=== PATIENT | female | born 1935 | race Caucasian/White ===

== ENCOUNTER 2017-08-10 09:25 | Day surgery (SDC) | payer MEDICARE, OTHER ==
[2017-08-10 10:06] LABS: Platelet Count 155 k/uL (150-450)
[2017-08-10 10:10] LABS: INR 1.5 (<1.2); Prothrombin Time 14.1 sec (9.0-12.0)
[2017-08-10 10:11] VITALS: RESP 16; TEMP 97.6
[2017-08-10 11:42] VITALS: BP 120/56; PULSE 80
--- NOTE | 2017-08-10 12:16 | XR ---
EXAMINATION TYPE: XR chest 1V DATE OF EXAM: 08/10/2017 COMPARISON: Chest x-ray December 16, 2014. HISTORY: Status post right thoracentesis TECHNIQUE: Single frontal view of the chest is obtained. FINDINGS: The osseous structures remain demineralized. Right axillary surgical clips are redemonstra curtis. There is persistent small to moderate-sized left pleural effusion and associated left basilar at electasis and/or infiltrate. There is tiny residual right-sided pleural effusion after thoracentesis. No sizable pneumothorax is seen. Cardiac silhouette size is stable and felt within normal limits wit h atherosclerotic change in aortic knob. IMPRESSION: No sizable pneumothorax after right-sided thoracentesis.
--- NOTE | 2017-08-11 09:00 | US ---
EXAMINATION TYPE: US thoracentesis DATE OF EXAM: 08/10/2017 COMPARISON: NONE HISTORY: Pleural effusion. FINDINGS: Maximal barrier technique was utilized. The skin overlying a suitable pocket of fluid was localized and the overlying skin prepped and draped. Lidocaine was used for local anesthesia. Ultras ound was used with sterile technique. A 5 Kyr[place] catheter over guide needle was advanced into the pl eural fluid collection using ultrasound guidance and the catheter advanced, needle removed. Approxim ately 1.1 liter(s) of serous fluid was removed. Catheter was withdrawn and hemostasis achieved. The re is no immediate complication. The patient discharged in stable condition without complication. IMPRESSION: STATUS POST ULTRASOUND GUIDED THORACENTESIS, POST PROCEDURE CHEST X-RAY PENDING. THIS PA OCEDURE WAS PERFORMED BY THE UNDERSIGNED. Specimen obtained for laboratory analysis.
== END 2017-08-10 12:11 | disposition home or self-care (01) ==
LOC: RADPROMAIN 09:25
PROVIDERS: ATTEND Internal Medicine Hematology & Oncology
DX: J90 Pleural effusion, not elsewhere classified (principal); C50.411 Malignant neoplasm of upper-outer quadrant of right female breast
CPT/HCPCS: 32555; 71045; 85049; 85610; 88108; 88305; 88341; 88342

== ENCOUNTER 2017-08-11 13:13 | Day surgery (SDC) | payer MEDICARE, OTHER ==
--- NOTE | 2017-08-11 14:19 | XR ---
EXAMINATION TYPE: XR chest 1V DATE OF EXAM: 08/11/2017 COMPARISON: 08/10/2017 HISTORY: Status post left-sided thoracentesis. TECHNIQUE: Single frontal view of the chest is obtained. FINDINGS: There is marked interval improvement in the left-sided pleural effusion. Small bilateral p leural effusions remain with associated bibasilar airspace disease, likely atelectasis. Right axillar y surgical clips are noted. Cardiomediastinal silhouette is within normal limits. Osseous structures display mild degenerative change. Small hiatal hernia is suspected. Diffuse osseous demineralization is seen. IMPRESSION: No postprocedural pneumothorax with significantly improved left pleural effusion, now sm all in persistent small right pleural effusion.
[2017-08-11 15:24] VITALS: RESP 18; TEMP 97.1
[2017-08-11 15:25] VITALS: BP 124/63; PULSE 66
--- NOTE | 2017-08-11 15:42 | US ---
EXAMINATION TYPE: US thoracentesis DATE OF EXAM: 08/11/2017 COMPARISON: NONE HISTORY: Pleural effusion. FINDINGS: Maximal barrier technique was utilized. The skin overlying a suitable pocket of fluid was localized and the overlying skin prepped and draped. Lidocaine was used for local anesthesia. Ultras ound was used with sterile technique. A 5 [place] catheter over guide needle was advanced into the pl eural fluid collection using ultrasound guidance and the catheter advanced, needle removed. Approxim ately 1.2 liter(s) of serous fluid was removed. Catheter was withdrawn and hemostasis achieved. The re is no immediate complication. The patient discharged in stable condition without complication. IMPRESSION: STATUS POST ULTRASOUND GUIDED THORACENTESIS, POST PROCEDURE CHEST X-RAY PENDING. THIS IN OCEDURE WAS PERFORMED BY THE UNDERSIGNED. Specimen obtained for laboratory analysis.
== END 2017-08-11 14:20 | disposition home or self-care (01) ==
LOC: RADPROMAIN 13:13
PROVIDERS: ATTEND Internal Medicine Hematology & Oncology
DX: J91.8 Pleural effusion in other conditions classified elsewhere (principal); C50.919 Malignant neoplasm of unspecified site of unspecified female breast
CPT/HCPCS: 32555; 36415; 71045; 88108; 88305; 88341; 88342

== ENCOUNTER 2017-08-16 09:40 | Inpatient (IN) | payer MEDICARE, OTHER ==
[2017-08-16] MEDS ORDERED: ONDANSETRON 4 MG/2 ML VIAL IVP STA (10:25)
[2017-08-16] MEDS ORDERED: FAMOTIDINE 20 MG/2 ML VIAL IV STA (10:39)
--- NOTE | 2017-08-16 10:42 | ED ---
General Adult HPI - General Chief complaint: Weakness Stated complaint: LEW/NAUSEA FOLLOWING THORESENTESIS Time Seen by Provider: 08/16/17 10:20 Source: patient, family, RN notes reviewed Mode of arrival: wheelchair Limitations: no limitations - History of Present Illness Initial comments: Patient is a pleasant 82-year-old female presenting to the emergency department with generalized weakness. Symptoms started somewhat yesterday however much worse today. Patient has been vomiting, multiple times. Patient has dyspnea that started today. Patient did have thoracentesis done last week and has been breathing well since that time. Dyspnea is not as bad as it was prior to thoracentesis. Patient does have history of metastatic breast cancer. - Related Data Home Medications Medication Instructions Recorded Confirmed Multivitamins, Thera [Multivitamin 1 tab PO DAILY 07/29/14 08/16/17 (formulary)] Simvastatin [Zocor] 20 mg PO DAILY 07/29/14 08/16/17 Cholecalciferol (Vitamin D3) 2,000 unit PO DAILY 08/08/17 08/16/17 [Vitamin D3] Enalapril Maleate [Vasotec] 5 mg PO DAILY 08/08/17 08/16/17 Ferrous Sulfate [Iron] 325 mg PO DAILY 08/08/17 08/16/17 Furosemide [Lasix] 20 mg PO DAILY 08/08/17 08/16/17 rOPINIRole HCL [Requip] 2 mg PO BID 08/16/17 08/16/17 Allergies Allergy/AdvReac Type Severity Reaction Status Date / Time No Known Allergies Allergy Verified 08/16/17 11:33 Review of Systems ROS Statement: Those systems with pertinent positive or pertinent negative responses have been documented in the HPI. ROS Other: All systems not noted in ROS Statement are negative. Constitutional: Denies: fever Eyes: Denies: eye pain ENT: Denies: ear pain Respiratory: Reports: dyspnea Cardiovascular: Reports: edema. Denies: chest pain Endocrine: Reports: fatigue Gastrointestinal: Reports: nausea, vomiting. Denies: abdominal pain Genitourinary: Denies: dysuria Skin: Denies: rash Neurological: Denies: headache Past Medical History Past Medical History: Asthma, Cancer, GERD/Reflux, Hyperlipidemia, Hypertension , Osteoarthritis (OA) Additional Past Medical History / Comment(s): Hypertension and hypertensive cardio vascular disease, hyperlipidemia, GERD, osteoarthritis, low back pain, breast cancer status post right lumpectomy followed by right mastectomy with chemoandradiation therapy. Pleural Effusions, Breast Ca with bone mets and liver mets. Patient taking oral chemo pill. History of Any Multi-Drug Resistant Organisms: None Reported Past Surgical History: Back Surgery, Bowel Resection, Cholecystectomy, Orthopedic Surgery Additional Past Surgical History / Comment(s): Right lumpectomy, right mastectomy, posterior lumbar discectomy with fusion more than 20 years ago, left total knee arthroplasty, cholecystectomy, explatory laparotomy with lysis of adhesion forsmallbowel obstruction, colonoscopy in 2010 was normal. Bilateral thoracentesis Past Anesthesia/Blood Transfusion Reactions: No Reported Reaction Past Psychological History: No Psychological Hx Reported Smoking Status: Never smoker - Past Family History Mother Additional Family Medical History / Comment(s): Mother at age of 82 cause of colon perforation watch was treated for temporal arteritis that led to the perforation of the colon and septic shock. Father Family Medical History: COPD, CVA/TIA Additional Family Medical History / Comment(s): emphysemia Brother(s) Family Medical History: Neurologic Disorder Daughter(s) Family Medical History: No Reported History Son(s) Family Medical History: No Reported History General Exam Limitations: no limitations General appearance: alert, in no apparent distress Head exam: Present: atraumatic Eye exam: Present: normal appearance, PERRL ENT exam: Present: normal oropharynx Neck exam: Present: normal inspection Respiratory exam: Present: decreased breath sounds (Bilateral bases) Cardiovascular Exam: Present: regular rate, normal rhythm GI/Abdominal exam: Present: soft. Absent: tenderness Extremities exam: Present: pedal edema. Absent: calf tenderness Back exam: Present: normal inspection Neurological exam: Present: alert, oriented X3. Absent: motor sensory deficit Expanded Neurological exam: Present: protecting the airway Motor strength exam: RUE: 5, LUE: 5, RLE: 5, LLE: 5 Eye Response: (4) open spontaneously Motor Response: (6) obeys commands Verbal Response: (5) oriented Psychiatric exam: Present: normal affect, normal mood Skin exam: Present: normal color Course Vital Signs 08/16/17 08/16/17 08/16/17 09:55 11:09 11:48 Temperature 96.9 F L Pulse Rate 85 79 81 Respiratory 15 18 16 Rate Blood Pressure 75/45 98/53 100/47 O2 Sat by Pulse 90 L 96 99 Oximetry EKG Findings - EKG Comments: EKG Findings:: Sinus rhythm at 81. PVC present. IA 146. QRS 68. QT 392. QTC 455. Normal axis. Low QRS voltage. No acute ST change. Medical Decision Making - Medical Decision Making Patient reevaluated. Patient and family updated. Case was discussed in detail with Dr. Godfrey who is familiar with this patient. He is aware of to liver metastasis. He does want to admit his patient with IV fluid hydration. - Lab Data Result diagrams: 08/16/17 11:13 08/16/17 11:13 Lab Results 08/16/17 08/16/17 08/16/17 Range/Units 11:13 11:13 11:13 WBC 9.0 (3.8-10.6) k/uL RBC 3.75 L (3.80-5.40) m/uL Hgb 13.4 (11.4-16.0) gm/dL Hct 39.4 (34.0-46.0) % MCV 105.0 H (80.0-100.0) fL MCH 35.8 H (25.0-35.0) pg MCHC 34.0 (31.0-37.0) g/dL RDW 16.7 H (11.5-15.5) % Plt Count 144 L (150-450) k/uL Neutrophils % 85 % Lymphocytes % 7 % Monocytes % 7 % Eosinophils % 0 % Basophils % 0 % Neutrophils # 7.7 (1.3-7.7) k/uL Lymphocytes # 0.6 L (1.0-4.8) k/uL Monocytes # 0.6 (0-1.0) k/uL Eosinophils # 0.0 (0-0.7) k/uL Basophils # 0.0 (0-0.2) k/uL Anisocytosis Slight Macrocytosis Moderate PT 17.8 H (9.0-12.0) sec INR 2.0 H (<1.2) APTT 31.3 H (22.0-30.0) sec Sodium 122 L (137-145) mmol/L Potassium 3.7 (3.5-5.1) mmol/L Chloride 86 L (98-107) mmol/L Carbon Dioxide 22 (22-30) mmol/L Anion Gap 14 mmol/L BUN 46 H (7-17) mg/dL Creatinine 1.70 H (0.52-1.04) mg/dL Est GFR (CKD-EPI)AfAm 32 (>60 ml/min/1.73 sqM) Est GFR (CKD-EPI)NonAf 28 (>60 ml/min/1.73 sqM) Glucose 73 L (74-99) mg/dL Calcium 7.8 L (8.4-10.2) mg/dL Magnesium 1.8 (1.6-2.3) mg/dL Total Bilirubin 8.2 H (0.2-1.3) mg/dL AST 334 H (14-36) U/L ALT 112 H (9-52) U/L Alkaline Phosphatase 182 H (38-126) U/L Total Protein 5.5 L (6.3-8.2) g/dL Albumin 2.3 L (3.5-5.0) g/dL - Radiology Data Radiology results: image reviewed (Chest x-ray does show moderate left and small right effusion.) Disposition Clinical Impression: Bilateral pleural effusion, Hyponatremia, Dehydration Disposition: ADMITTED IP TO THIS HOSP Is patient prescribed a controlled substance at d/c from ED?: No Referrals: Rachael Garcia DO [Primary Care Provider] - 1-2 days Decision Time: 12:52
[2017-08-16 11:44] LABS: Albumin 2.3 g/dL (3.5-5.0); Anisocytosis Slight; Basophils % (A) 0 %; Calcium 7.8 mg/dL (8.4-10.2); Eosinophils % (A) 0 %; HCT 39.4 % (34.0-46.0); HGB 13.4 gm/dL (11.4-16.0); Lymphocytes # (A) 0.6 k/uL (1.0-4.8); Lymphocytes % (A) 7 %; MCH 35.8 pg (25.0-35.0); Macrocytosis Moderate; Magnesium 1.8 mg/dL (1.6-2.3); Mean Platelet Volume 7.8; Monocytes # (A) 0.6 k/uL (0-1.0); Monocytes % (A) 7 %; Neutrophils # (A) 7.7 k/uL (1.3-7.7); Neutrophils % (A) 85 %; Platelet Count 144 k/uL (150-450); Potassium 3.7 mmol/L (3.5-5.1); RBC 3.75 m/uL (3.80-5.40); RDW 16.7 % (11.5-15.5); Total Bilirubin 8.2 mg/dL (0.2-1.3); Total Protein 5.5 g/dL (6.3-8.2)
[2017-08-16 11:51] LABS: Partial Thromboplastin Time 31.3 sec (22.0-30.0); Prothrombin Time 17.8 sec (9.0-12.0)
--- NOTE | 2017-08-16 12:19 | XR ---
EXAMINATION TYPE: XR chest 2V DATE OF EXAM: 08/16/2017 COMPARISON: 08/11/2017 HISTORY: 82-year-old female with weakness and shortness of breath TECHNIQUE: Frontal and lateral views FINDINGS: Heart normal size. Scattered large calcifications. Mild diffuse interstitial prominence similar prior . Moderate left and small right pleural effusions show slight interval increase from 08/11/2017. No ap preciable pneumothorax. IMPRESSION: Moderate left and small right pleural effusions with adjacent atelectasis and/or consolidation, sligh tly increased from 08/11/2017.
[2017-08-16] MEDS ORDERED: NALOXONE 0.4 MG/ML 1 ML VIAL IV PRN (12:52)
[2017-08-16] MEDS ORDERED: ONDANSETRON 4 MG/2 ML VIAL IVP PRN (12:52)
[2017-08-16] MEDS: SODIUM CHLORIDE 0.9% 1,000 ML IV SCH (14:25)
[2017-08-17] MEDS: SODIUM CHLORIDE 0.9% 1,000 ML IV SCH ×2 (05:32→16:47)
[2017-08-17] MEDS ORDERED: SODIUM CHLORIDE 0.9% 1,000 ML IV ONE ×3 (05:59→17:35)
[2017-08-17] MEDS ORDERED: PANTOPRAZOLE 40 MG/10 ML VIAL IV SCH (09:00)
[2017-08-17 10:35] LABS: Appearance,Urine Turbid (Clear); Bacteria,Urine Moderate /hpf; Bilirubin,Urine 2+ (Negative); Blood,Urine Trace (Negative); Color,Urine Dark Brown; Glucose,Urine (UA) Negative (Negative); Hyaline Casts,Urine 100 /lpf (0-2); Ketones,Urine Negative (Negative); Leukocyte Esterase,Urine Large (Negative); Mucus,Urine Occasional /hpf; Nitrite,Urine Negative (Negative); PH, Urine 5.5 (5.0-8.0); Protein,Urine 1+ (Negative); RBC,Urine 2 /hpf (0-5); Specific Gravity,Urine 1.014 (1.001-1.035); WBC,Urine >182 /hpf (0-5)
[2017-08-17] MEDS: HYDROCORTISONE SUCCINATE 100 MG/2 ML VIAL IV SCH ×3 (11:45→23:52)
--- NOTE | 2017-08-17 12:13 | P.HPIM ---
History of Present Illness H&P Date: 08/17/17 Chief Complaint: Severe hyponatremia, liver metastasis, severe hypotension, breast cancer wi 82-year-old female one of Dr. Garcia's patient with past medical history of breast cancer was diagnosed back in 2013, underwent 2 through surgery and chemotherapy. Patient had liver metastases were diagnosed recently with Dr. Godfrey. She was in the office yesterday for follow-up and found to be in severe fatigue tiredness not doing well and had mild altered mental status. With the current complaint was sent to the emergency department at [facility] where was seen and evaluated, surprisingly found to have severe hyponatremia with sodium of 122, acute kidney injury with most likely ATN with creatinine 1.7 BUN 46. Also had severe coagulopathy with INR of 2.0, PT of 17.8. Also her liver function tests are extremely abnormal. Patient was hospitalized under oncology and transferred to our service this morning for her current medical management. Patient continued to have severe hypotension with a blood pressure running in the 70s to 80/50. Review her CAT scan with the metastasis to the liver patient most likely had more metastasis elsewhere including lymph node around the vena cava along with adrenal gland causing mild to moderate adrenal insufficiency along with more blockage of the vena cava causing worsening edema in the lower extremity. Review of Systems CONSTITUTIONAL: Well-developed no acute respiratory distress. EYES: Positive icterus sclerae, no conjunctivitis. EARS, NOSE, MOUTH, THROAT, and FACE: No sore throat, lymphadenopathy, carotid bruits or deformity. RESPIRATORY: No SOB cough or wheezes. CARDIOVASCULAR: No CP, positive Palpitation, PND, Orthopnea, or angina. GASTROINTESTINAL: Slight Abd pain with distention, Nausea or vomiting, no Diarrhea or constipation, No GI Bleed, no distention or masses, slight hepatomegaly with jaundice.. GENITOURINARY: Negative for Hematuria or UTI, no kidney stones. INTEGUMENT/BREAST: Negative for any muscular injury with mild osteoarthritis.. HEMATOLOGIC/LYMPHATIC: Negative for bleed or purpura. MUSCULOSKELTAL: Positive for Myalgia or arthralgia. NEURLOGICAL: No LOC, Sz or syncope, blurred vision dizziness or abnormality. Positive abnormal gait. BEHAVIORAL/PSYCH: Negative. ENDOCRINE: Negative. Past Medical History Past Medical History: Asthma, Cancer, GERD/Reflux, Hyperlipidemia, Hypertension , Osteoarthritis (OA) Additional Past Medical History / Comment(s): Hypertension and hypertensive cardio vascular disease, low back pain, breast cancer status post right lumpectomy followed by right mastectomy with chemo and radiation therapy-per pt/ danielle they were told 2 weeks ago has mets to bone and liver. Pleural Effusions, Patient taking oral chemo pill. History of Any Multi-Drug Resistant Organisms: None Reported Past Surgical History: Back Surgery, Bowel Resection, Cholecystectomy, Orthopedic Surgery Additional Past Surgical History / Comment(s): Right lumpectomy, right mastectomy, posterior lumbar discectomy with fusion more than 20 years ago, left total knee arthroplasty, cholecystectomy, explatory laparotomy with lysis of adhesion formallbowel obstruction, colonoscopy in 2010 was normal. several Bilateral thoracentesis latest ones 08-10-17 and 08-11-17, cataracts Past Anesthesia/Blood Transfusion Reactions: No Reported Reaction Smoking Status: Never smoker - Past Family History Mother Additional Family Medical History / Comment(s): Mother at age of 82 cause of colon perforation watch was treated for temporal arteritis that led to the perforation of the colon and septic shock. Father Family Medical History: COPD, CVA/TIA Additional Family Medical History / Comment(s): emphysemia Brother(s) Family Medical History: Neurologic Disorder Daughter(s) Family Medical History: No Reported History Son(s) Family Medical History: No Reported History Medications and Allergies Home Medications Medication Instructions Recorded Confirmed Type Multivitamins, Thera [Multivitamin 1 tab PO DAILY 07/29/14 08/16/17 History (formulary)] Simvastatin [Zocor] 20 mg PO DAILY 07/29/14 08/16/17 History Cholecalciferol (Vitamin D3) 2,000 unit PO DAILY 08/08/17 08/16/17 History [Vitamin D3] Enalapril Maleate [Vasotec] 5 mg PO DAILY 08/08/17 08/16/17 History Ferrous Sulfate [Iron] 325 mg PO DAILY 08/08/17 08/16/17 History Furosemide [Lasix] 20 mg PO DAILY 08/08/17 08/16/17 History rOPINIRole HCL [Requip] 2 mg PO BID 08/16/17 08/16/17 History Allergies Allergy/AdvReac Type Severity Reaction Status Date / Time No Known Allergies Allergy Verified 08/16/17 11:33 Physical Exam Vitals: Vital Signs Temp Pulse Pulse Resp BP BP Pulse Ox 08/17/17 11:37 75 99/46 08/17/17 08:30 75/35 08/17/17 07:39 97 08/17/17 06:04 97.6 F 76 16 78/36 99 08/17/17 00:00 87 18 08/16/17 21:41 97.4 F L 87 18 91/42 94 L 08/16/17 18:35 97.4 F L 90 18 114/49 93 L 08/16/17 17:00 84 18 90/42 100 08/16/17 15:57 86 18 88/37 98 08/16/17 14:27 96.3 F L 81 18 100 08/16/17 14:00 82 16 106/48 99 Intake and Output 08/16/17 08/17/17 08/17/17 22:59 06:59 14:59 Intake Total 30 650 1000 Output Total 100 Balance 30 650 900 Intake: IV 1000 Sodium Chloride 0.9% 1, 1000 000 ml @ 999 mls/hr IV . Q1H1M ONE Rx#:[id number] Intake, IV Titration 650 Amount Sodium Chloride 0.9% 1, 650 000 ml @ 999 mls/hr IV . Q1H1M ONE Rx#:[id number] Oral 30 Output: Urine 100 Straight 100 Other: Voiding Method Bedpan # Voids 1 General Appearance: Alert, cooperative, no distress, appears stated age. Positive jaundice with eye icterus sclera. Neck HEENT: Supple, no lymphadenopathy, no thyroid enlargement, no carotid bruits. Lungs: Clear to auscultation without crackles or wheezes no rhonchi, no deformity. Chest Wall: Chest wall normal expansion with deep inspiration no tenderness and no deformity was found on exam, no costochondral pain or discomfort. Heart: Regular rate and rhythm, S1, S2 normal, no murmur, rub or gallop. Back: Symmetric, no curvature, ROM normal, no CVA tenderness. Abdomen: Soft, non-tender, bowel sounds active all four quadrants, palpable hepatomegaly with mildly enlarged spleen as well, small ascites. Extremities: Extremities normal, atraumatic, no cyanosis, 2+ edema Pulses: 2+ and symmetric. Skin: Skin color, texture, tugor normal, no rashes or lesions. Neurologic: Alert oriented x3 cranial nerves II through XII intact, no motor deficit, positive abnormal balance or gait. Results CBC & Chem 7: 08/16/17 11:13 08/16/17 11:13 Labs: Abnormal Lab Results - Last 24 Hours (Table) 08/16/17 08/16/17 08/17/17 Range/Units 11:13 11:13 10:10 RBC 3.75 L (3.80-5.40) m/uL MCV 105.0 H (80.0-100.0) fL MCH 35.8 H (25.0-35.0) pg RDW 16.7 H (11.5-15.5) % Plt Count 144 L (150-450) k/uL Lymphocytes # 0.6 L (1.0-4.8) k/uL PT 17.8 H (9.0-12.0) sec INR 2.0 H (<1.2) APTT 31.3 H (22.0-30.0) sec Osmolality (280-301) mosm/kg Urine Appearance Turbid H (Clear) Urine Protein 1+ H (Negative) Urine Blood Trace H (Negative) Urine Bilirubin 2+ H (Negative) Ur Leukocyte Esterase Large H (Negative) Urine WBC >182 H (0-5) /hpf Urine WBC Clumps Many H (None) /hpf Urine Bacteria Moderate H (None) /hpf Hyaline Casts 100 H (0-2) /lpf Urine Mucus Occasional H (None) /hpf 08/17/17 Range/Units 10:45 RBC (3.80-5.40) m/uL MCV (80.0-100.0) fL MCH (25.0-35.0) pg RDW (11.5-15.5) % Plt Count (150-450) k/uL Lymphocytes # (1.0-4.8) k/uL PT (9.0-12.0) sec INR (<1.2) APTT (22.0-30.0) sec Osmolality 265 L (280-301) mosm/kg Urine Appearance (Clear) Urine Protein (Negative) Urine Blood (Negative) Urine Bilirubin (Negative) Ur Leukocyte Esterase (Negative) Urine WBC (0-5) /hpf Urine WBC Clumps (None) /hpf Urine Bacteria (None) /hpf Hyaline Casts (0-2) /lpf Urine Mucus (None) /hpf Thrombosis Risk Factor Assmnt - DVT/VTE Prophylaxis DVT/VTE Prophylaxis: Mechanical Prophylaxis ordered - Choose All That Apply Each Risk Factor Represents 3 Points: Age 75 years or older Other congenital or acquired thrombophilia - If yes, enter type in comment: No Thrombosis Risk Factor Assessment Total Risk Factor Score: 3 Thrombosis Risk Factor Assessment Level: Moderate Risk Assessment and Plan Plan: 1 severe hyponatremia: Patient was hospitalized continue gentle hydration, patient might require mildly concentrated salt, also might benefit from sodium bicarbonate. Repeat osmolality along with CMP daily and if lower sodium patient might benefit from demeclocycline and nephrology consultation if needed. Ex 2 severe hypotension: Most likely combination of dehydration along with metastasis probably causing adrenal insufficiency, we'll continue gentle hydration and if needed start patient on hydrocortisone and fludrocortisone for adrenal insufficiency. 3 liver metastasis: More advance causing jaundice and more sign and symptom of liver failure which will increase the mortalities significantly with the current problem. Continue to watch liver function tests and coagulation on daily basis further testing including ultrasound of the liver and biliary tree be done. 4 severe coagulopathy: Caused by the liver metastasis continue to watch BUN/ creatinine and if needed vitamin K can be beneficial. 5 adrenal insufficiency: With possibility of adrenal metastasis as well, with current problem hydrocortisone 100 every 6 hours we'll be giving for the next 8 hours as a trial if improvement in the blood pressure and general condition that would make the diagnosis. 6 advanced stage IV breast cancer with metastasis: Was on chemotherapy still seen oncology regularly. 7 iron deficiency anemia: Patient to continue iron supplement. 8 anasarca: Most likely secondary to liver metastasis along with ascites and possibly pressure around the vena cava causing the symptoms. We will start diuretics as soon as the blood pressure improved. 9 restless leg syndrome: Has been on Requip 2 mg daily at bedtime continue medication. 10 hyperlipidemia: Patient has been on simvastatin which will be held for now. 11 hypertension: Blood pressure is low hold Vasotec for now. 12 GI prophylaxis: Patient is on pantoprazole IV. 13 DVT prophylaxis: Patient has coagulopathy as of now there is no reason for any anticoagulation will continue knee-high ESPERANZA hose. CODE STATUS: Full code. Admit patient to inpatient status for more than 2 nights.
[2017-08-17 13:31] VITALS: BMI 27.4
--- NOTE | 2017-08-17 15:19 | P.CNPUL ---
History of Present Illness Consult date: 08/17/17 Reason for consult: dyspnea (Hypotension), other Chief complaint: Hypotension History of present illness: This is an 81-year-old female who presented emergency department with altered mental status and fatigue. The patient was also having diarrhea and vomiting yesterday. She has had decreased appetite. She was found to be hyponatremic. She does have a history of breast cancer with metastases. The patient has liver metastases. She states she has been feeling very tired and fatigued lately. She is also complaining of shortness of breath. She is currently on 2 L nasal cannula with an O2 saturation of 97%. She denies fevers but does have chills and is always cold. She has swollen legs as well. She has been hypotensive and did require 2 L of IV fluid bolus. Her most recent blood pressure was 99/56. She is currently receiving IV fluids at 75 mL per hour. She does state that she has had decreased urine output. The patient did have a chest x-ray which showed moderate left pleural effusion and small right pleural effusion. She does have diffuse anasarca. The patient was straight cathed and had 100 mL of urine output. Review of Systems All systems: negative Past Medical History Past Medical History: Asthma, Cancer, GERD/Reflux, Hyperlipidemia, Hypertension , Osteoarthritis (OA) Additional Past Medical History / Comment(s): Hypertension and hypertensive cardio vascular disease, low back pain, breast cancer status post right lumpectomy followed by right mastectomy with chemo and radiation therapy-per pt/ danielle they were told 2 weeks ago has mets to bone and liver. Pleural Effusions, Patient taking oral chemo pill. History of Any Multi-Drug Resistant Organisms: None Reported Past Surgical History: Back Surgery, Bowel Resection, Cholecystectomy, Orthopedic Surgery Additional Past Surgical History / Comment(s): Right lumpectomy, right mastectomy, posterior lumbar discectomy with fusion more than 20 years ago, left total knee arthroplasty, cholecystectomy, explatory laparotomy with lysis of adhesion formallbowel obstruction, colonoscopy in 2010 was normal. several Bilateral thoracentesis latest ones 08-10-17 and 08-11-17, cataracts Past Anesthesia/Blood Transfusion Reactions: No Reported Reaction Smoking Status: Never smoker - Past Family History Mother Additional Family Medical History / Comment(s): Mother at age of 82 cause of colon perforation watch was treated for temporal arteritis that led to the perforation of the colon and septic shock. Father Family Medical History: COPD, CVA/TIA Additional Family Medical History / Comment(s): emphysemia Brother(s) Family Medical History: Neurologic Disorder Daughter(s) Family Medical History: No Reported History Son(s) Family Medical History: No Reported History Medications and Allergies Home Medications Medication Instructions Recorded Confirmed Type Multivitamins, Thera [Multivitamin 1 tab PO DAILY 07/29/14 08/16/17 History (formulary)] Simvastatin [Zocor] 20 mg PO DAILY 07/29/14 08/16/17 History Cholecalciferol (Vitamin D3) 2,000 unit PO DAILY 08/08/17 08/16/17 History [Vitamin D3] Enalapril Maleate [Vasotec] 5 mg PO DAILY 08/08/17 08/16/17 History Ferrous Sulfate [Iron] 325 mg PO DAILY 08/08/17 08/16/17 History Furosemide [Lasix] 20 mg PO DAILY 08/08/17 08/16/17 History rOPINIRole HCL [Requip] 2 mg PO BID 08/16/17 08/16/17 History Allergies Allergy/AdvReac Type Severity Reaction Status Date / Time No Known Allergies Allergy Verified 08/16/17 11:33 Physical Exam Osteopathic Statement: *. No significant issues noted on an osteopathic structural exam other than those noted in the History and Physical/Consult. Vitals: Vital Signs Temp Pulse Pulse Pulse Resp BP BP 08/17/17 14:28 97.4 F L 75 18 98/46 08/17/17 11:37 75 99/46 08/17/17 08:30 75/35 08/17/17 07:39 08/17/17 06:04 97.6 F 76 16 78/36 08/17/17 00:00 87 18 08/16/17 21:41 97.4 F L 87 18 91/42 08/16/17 18:35 97.4 F L 90 18 114/49 08/16/17 17:00 84 18 90/42 08/16/17 15:57 86 18 88/37 Pulse Ox 08/17/17 14:28 97 08/17/17 11:37 08/17/17 08:30 08/17/17 07:39 97 08/17/17 06:04 99 08/17/17 00:00 08/16/17 21:41 94 L 08/16/17 18:35 93 L 08/16/17 17:00 100 08/16/17 15:57 98 Intake and Output 08/17/17 08/17/17 08/17/17 06:59 14:59 22:59 Intake Total 650 2000 Output Total 200 Balance 650 1800 Intake: IV 2000 Sodium Chloride 0.9% 1, 2000 000 ml @ 999 mls/hr IV . Q1H1M ONE Rx#:[id number] Intake, IV Titration 650 Amount Sodium Chloride 0.9% 1, 650 000 ml @ 999 mls/hr IV . Q1H1M ONE Rx#:[id number] Output: Urine 200 Straight 100 Other: Voiding Method Bedpan Weight 74.843 kg Gen.: Patient is alert and oriented 3, no acute distress, obese Cardiovascular: Regular rate and rhythm, S1/S2 Lungs: Diminished breath sounds bilaterally at the bases Abdomen: Soft nontender nondistended positive bowel sounds Extremities: 3+ pitting edema Results - Laboratory Findings CBC and BMP: 08/16/17 11:13 08/16/17 11:13 PT/INR, D-dimer PT 17.8 sec (9.0-12.0) H 08/16/17 11:13 INR 2.0 (<1.2) H 08/16/17 11:13 Abnormal lab findings: Abnormal Labs 08/16/17 08/16/17 08/16/17 11:13 11:13 11:13 RBC 3.75 L MCV 105.0 H MCH 35.8 H RDW 16.7 H Plt Count 144 L Lymphocytes # 0.6 L PT 17.8 H INR 2.0 H APTT 31.3 H Sodium 122 L Chloride 86 L BUN 46 H Creatinine 1.70 H Glucose 73 L Osmolality Calcium 7.8 L Total Bilirubin 8.2 H AST 334 H ALT 112 H Alkaline Phosphatase 182 H Total Protein 5.5 L Albumin 2.3 L Urine Appearance Urine Protein Urine Blood Urine Bilirubin Ur Leukocyte Esterase Urine WBC Urine WBC Clumps Urine Bacteria Hyaline Casts Urine Mucus 08/17/17 08/17/17 10:10 10:45 RBC MCV MCH RDW Plt Count Lymphocytes # PT INR APTT Sodium Chloride BUN Creatinine Glucose Osmolality 265 L Calcium Total Bilirubin AST ALT Alkaline Phosphatase Total Protein Albumin Urine Appearance Turbid H Urine Protein 1+ H Urine Blood Trace H Urine Bilirubin 2+ H Ur Leukocyte Esterase Large H Urine WBC >182 H Urine WBC Clumps Many H Urine Bacteria Moderate H Hyaline Casts 100 H Urine Mucus Occasional H - Diagnostic Findings Chest x-ray: report reviewed, image reviewed Assessment and Plan Assessment: Acute hypoxic respiratory failure Hypotension, likely multifactorial Relative adrenal insufficiency Intravascular volume depletion UTI present on admission Moderate protein calorie malnutrition Moderate left and small right pleural effusions Anasarca Stage IV breast cancer with liver metastases Encephalopathy now resolved Hyponatremia Acute kidney injury, ATN secondary to hypotension Iron deficiency anemia Acute kidney injury Generalized fatigue and failure to thrive Coagulopathy secondary to liver metastases O2 to maintain saturation greater than or equal to 88% Will check ultrasound of the chest to roosevelt for thoracentesis Albumin x 2 doses Continue IV fluids at 75 mL per hour Avoid antihypertensives and nephrotoxins Antibiotics: Rocephin Await final urine culture Recheck labs now Check lactic acid GI and DVT prophylaxis Oncology recommendations Place Garcia catheter and monitor urine output Incentive spirometry and pulmonary hygiene Thank you for this consultation we'll continue to follow along
--- NOTE | 2017-08-17 15:53 | US ---
EXAMINATION TYPE: US chest DATE OF EXAM: 08/17/2017 COMPARISON: NONE CLINICAL HISTORY: bilateral, roosevelt for thoracentesis. EXAM MEASUREMENTS: Right Pleural Effusion fluid pocket: 9.1 cm Right skin to fluid thickness: 4.1 cm Left Pleural Effusion fluid pocket: 10.5 cm Left skin to fluid thickness: 3.9 cm Right side marked for possible thoracentesis outside the dept. Left side marked for possible thoracentesis outside the dept. Pulmonologists are able to review the images in the patient?s EMR. IMPRESSIONS: Bilateral pleural effusions, left greater than right.
[2017-08-17] MEDS: ALBUMIN HUMAN 25% 50 ML in EMPTY BAG 1 BAG IVPB SCH ×4 (15:57→23:35)
[2017-08-17 17:21] VITALS: RESP 20
[2017-08-17] MEDS: cefTRIAXone IN SWFI 1,000 MG/10 ML SYRINGE IVP SCH (17:21)
--- NOTE | 2017-08-17 17:44 | P.CONS ---
History of Present Illness - Reason for Consult Consult date: 08/17/17 metastatic breast cancer Requesting physician: James Agustin - Chief Complaint hypotension, weakness, dizziness - History of Present Illness Ms. Alvarez is a very pleasant female pt of Dr. Godfrey initially diagnosed with stage IIIA in January 2003, treated with right mastectomy and axillary nodes resection in February 2003, 4 cycles of adjuvant AC/T completed in June 2003, radiation therapy and then completed 5 years of arimidex in June 2008. She did well until end of June 2014 when she developed dyspnea, had a CXR then CT C 07/29/14 which revealed bilateral pleural effusion, diagnostic thoracentesis was positive for recurrent breast carcinoma. She started femara on 08/07/14. On 08/18/[address] CAP-bilateral pleural effusions, and a bone scan-bone metastasis, repeat thoracentesis on 09/06/2014. She started ibrance/ femara 10/14/14. She cont to have treatment f/u studies with stable disease, Ibrance was held in Jan 2017 due to worsening pancytopenia and fatigue, 04/23/17 CT CAP revealed stable disease, CT C 07/30/17 for progressive dyspnea revealed bilateral pleural effusions and new liver lesions. Thoracentesis 08/11, cytology negative for malignancy. Pt was going to be starting faslodex but, that was going to be based on cytology from thoracentesis. Pt was progressively getting weaker over the last several days, she was having trouble recalling events, she is tired, she has been vomiting and having diarrhea for about 1 week, she does not remember having a fever, she was eating this AM, denies LEW, chest pain, dizziness, nursing reports only 1 void since midnight shift, pt has no suprapubic pain, no sensation to urinate, she has been hypotensive, fluid bolus ordered. She feels very tired,short of breath with slight exertion,bilateral lower extremities edema Review of Systems As stated in HPI, pt poor historian, info taken mainly from office chart ROS unobtainable: due to mental status Past Medical History Past Medical History: Asthma, Cancer, GERD/Reflux, Hyperlipidemia, Hypertension , Osteoarthritis (OA) Additional Past Medical History / Comment(s): Hypertension and hypertensive cardio vascular disease, low back pain, breast cancer status post right lumpectomy followed by right mastectomy with chemo and radiation therapy-per pt/ danielle they were told 2 weeks ago has mets to bone and liver. Pleural Effusions, Patient taking oral chemo pill. History of Any Multi-Drug Resistant Organisms: None Reported Past Surgical History: Back Surgery, Bowel Resection, Cholecystectomy, Orthopedic Surgery Additional Past Surgical History / Comment(s): Right lumpectomy, right mastectomy, posterior lumbar discectomy with fusion more than 20 years ago, left total knee arthroplasty, cholecystectomy, explatory laparotomy with lysis of adhesion formallbowel obstruction, colonoscopy in 2010 was normal. several Bilateral thoracentesis latest ones 08-10-17 and 08-11-17, cataracts Past Anesthesia/Blood Transfusion Reactions: No Reported Reaction Smoking Status: Never smoker Past Alcohol Use History: Rare Past Drug Use History: None Reported - Past Family History Mother Additional Family Medical History / Comment(s): Mother at age of 82 cause of colon perforation watch was treated for temporal arteritis that led to the perforation of the colon and septic shock. Father Family Medical History: COPD, CVA/TIA Additional Family Medical History / Comment(s): emphysemia Brother(s) Family Medical History: Neurologic Disorder Daughter(s) Family Medical History: No Reported History Son(s) Family Medical History: No Reported History Medications and Allergies Home Medications Medication Instructions Recorded Confirmed Type Multivitamins, Thera [Multivitamin 1 tab PO DAILY 07/29/14 08/16/17 History (formulary)] Simvastatin [Zocor] 20 mg PO DAILY 07/29/14 08/16/17 History Cholecalciferol (Vitamin D3) 2,000 unit PO DAILY 08/08/17 08/16/17 History [Vitamin D3] Enalapril Maleate [Vasotec] 5 mg PO DAILY 08/08/17 08/16/17 History Ferrous Sulfate [Iron] 325 mg PO DAILY 08/08/17 08/16/17 History Furosemide [Lasix] 20 mg PO DAILY 08/08/17 08/16/17 History rOPINIRole HCL [Requip] 2 mg PO BID 08/16/17 08/16/17 History Allergies Allergy/AdvReac Type Severity Reaction Status Date / Time No Known Allergies Allergy Verified 08/16/17 11:33 Physical Exam Vitals: Vital Signs Temp Pulse Pulse Pulse Resp BP BP 08/17/17 14:45 95.7 F L 68 24 103/46 06/21/18 14:28 97.4 F L 75 18 98/46 08/17/17 11:37 75 99/46 08/17/17 08:30 75/35 08/17/17 07:39 08/17/17 06:04 97.6 F 76 16 78/36 08/17/17 00:00 87 18 08/16/17 21:41 97.4 F L 87 18 91/42 08/16/17 18:35 97.4 F L 90 18 114/49 08/16/17 17:00 84 18 90/42 08/16/17 15:57 86 18 88/37 Pulse Ox 08/17/17 14:45 94 L 08/17/17 14:28 97 08/17/17 11:37 08/17/17 08:30 08/17/17 07:39 97 08/17/17 06:04 99 08/17/17 00:00 08/16/17 21:41 94 L 08/16/17 18:35 93 L 08/16/17 17:00 100 08/16/17 15:57 98 Intake and Output 08/17/17 08/17/17 08/17/17 06:59 14:59 22:59 Intake Total 650 2000 Output Total 200 Balance 650 1800 Intake: IV 2000 Sodium Chloride 0.9% 1, 2000 000 ml @ 999 mls/hr IV . Q1H1M ONE Rx#:[id number] Intake, IV Titration 650 Amount Sodium Chloride 0.9% 1, 650 000 ml @ 999 mls/hr IV . Q1H1M ONE Rx#:[id number] Output: Urine 200 Straight 100 Other: Voiding Method Bedpan Weight 74.843 kg - Constitutional General appearance: average body habitus, cooperative, no acute distress - EENT Eyes: anicteric sclerae, EOMI, normal appearance ENT: normal oropharynx - Neck Neck: no lymphadenopathy - Respiratory Respiratory: bilateral: diminished - Cardiovascular Heart sounds: normal: S1, S2 leg Peripheral Edema: bilateral: 3+, Pitting - Gastrointestinal General gastrointestinal: no absent bowel sounds, no decreased bowel sounds, no distended, no hepatomegaly, no hyperactive bowel sounds, normal bowel sounds, no organomegaly, no rigid, no scaphoid, soft, no splenomegaly, no tenderness, no umbilical hernia, no ventral hernia - Integumentary Integumentary: pale - Neurologic Neurologic: CNII-XII intact - Musculoskeletal Musculoskeletal: generalized weakness - Psychiatric having difficulty recaling specific events, oriented to self, knows she is in hospital,can't remember how she got here Results CBC & Chem 7: 08/16/17 11:13 08/16/17 11:13 Labs: Abnormal Lab Results - Last 24 Hours (Table) 08/17/17 08/17/17 Range/Units 10:10 10:45 Osmolality 265 L (280-301) mosm/kg Urine Appearance Turbid H (Clear) Urine Protein 1+ H (Negative) Urine Blood Trace H (Negative) Urine Bilirubin 2+ H (Negative) Ur Leukocyte Esterase Large H (Negative) Urine WBC >182 H (0-5) /hpf Urine WBC Clumps Many H (None) /hpf Urine Bacteria Moderate H (None) /hpf Hyaline Casts 100 H (0-2) /lpf Urine Mucus Occasional H (None) /hpf Microbiology - Last 24 Hours (Table) 08/17/17 10:10 Urine Culture - Preliminary Urine,Catheterized Chest x-ray: report reviewed Assessment and Plan (1) Metastatic breast cancer Narrative/Plan: Pt recently had evidence of disease progression in liver and she had recurrent pleural effusions-just drained, cytology was negative. Plan was to start faslodex injections but, that will be on hold for now. Current Visit: Yes Status: Chronic Priority: High Code(s): C50.919 - MALIGNANT NEOPLASM OF UNSP SITE OF UNSPECIFIED FEMALE BREAST SNOMED Code(s): 568398676 (2) Bilateral pleural effusion Narrative/Plan: Recently drained, no malignant cells found, previously fluid was malignant. May need diagnostic throacentesis or may do liver biopsy, will discuss case with Primary Oncologist. Current Visit: Yes Status: Acute Priority: Medium Code(s): J90 - PLEURAL EFFUSION, NOT ELSEWHERE CLASSIFIED SNOMED Code(s): 593042599 (3) Dehydration Current Visit: Yes Status: Acute Code(s): E86.0 - DEHYDRATION SNOMED Code( s): 36176338 (4) Hyponatremia Current Visit: Yes Status: Acute Code(s): E87.1 - HYPO-OSMOLALITY AND HYPONATREMIA SNOMED Code(s): 96997745 Plan: Pt was hypotensive this AM, pancultures ordered, fluid bolus given. Case discussed with Dr. Agustin who has agreed to Medically manage pt.
[2017-08-17 18:05] LABS: Glucose,Whole Blood 104 mg/dL (75-99)
[2017-08-17] MEDS ORDERED: FUROSEMIDE 10 MG/ML 4 ML VIAL IV STA (19:01)
[2017-08-17 21:12] VITALS: TEMP 97.5
[2017-08-18 05:16] VITALS: BP 106/48; PULSE 82
[2017-08-18] MEDS: SODIUM CHLORIDE 0.9% 1,000 ML IV SCH ×4 (06:04→16:00)
[2017-08-18] MEDS: HYDROCORTISONE SUCCINATE 100 MG/2 ML VIAL IV SCH ×2 (06:04→11:44)
[2017-08-18] MEDS: PANTOPRAZOLE 40 MG TABLET PO SCH ×2 (07:13→08:08)
[2017-08-18] MEDS: FERROUS SULFATE 325 MG TAB PO SCH ×2 (07:13→08:07)
[2017-08-18 08:18] LABS: Albumin 3.2 g/dL (3.5-5.0); Calcium 7.2 mg/dL (8.4-10.2); Total Bilirubin 8.5 mg/dL (0.2-1.3)
[2017-08-18 08:27] LABS: Anisocytosis Slight; Basophils % (A) 0 %; Eosinophils % (A) 0 %; HCT 40.6 % (34.0-46.0); HGB 13.4 gm/dL (11.4-16.0); Lymphocytes # (A) 0.8 k/uL (1.0-4.8); Lymphocytes % (A) 7 %; MCH 35.8 pg (25.0-35.0); MCV 108.6 fL (80.0-100.0); Macrocytosis Marked; Mean Platelet Volume 7.7; Monocytes # (A) 0.4 k/uL (0-1.0); Monocytes % (A) 4 %; Neutrophils # (A) 10.1 k/uL (1.3-7.7); Neutrophils % (A) 89 %; Platelet Count 110 k/uL (150-450); RBC 3.74 m/uL (3.80-5.40); RDW 17.2 % (11.5-15.5); WBC 11.4 k/uL (3.8-10.6)
[2017-08-18] MEDS: cefTRIAXone IN SWFI 1,000 MG/10 ML SYRINGE IVP SCH (08:54)
[2017-08-18 10:18] LABS: Target Cells Present; Toxic Granulation Present
[2017-08-18 10:19] LABS: Toxic Vacuolation Present
--- NOTE | 2017-08-18 10:29 | CONS ---
CONSULTATION REASON FOR CONSULT: Hyponatremia. HISTORY OF PRESENT ILLNESS: Patient is an 82-year-old female with history of breast cancer, status post surgery and chemotherapy with liver mets. The patient was admitted to the hospital with altered mentation. She was seen as outpatient and complained of increased fatigue and was not doing well. Labs on initial admission showed a serum sodium of 122 and creatinine of 1.7 mg/dL with previous creatinine of 0.8 in 2016. It is difficult to obtain any history from the patient. She is barely arousable. Her lactic acid was elevated. Currently, patient has an indwelling Garcia catheter and has not had much urine output. Blood pressure has been on the lower side with systolic around 78 yesterday. The patient has received IV fluid boluses and is currently maintained on saline at 75 mL an hour. At home she was on MARILYN inhibitors which are currently on hold. This morning sodium has gone up to 127 and creatinine is at 3.23 mg/dL. PAST MEDICAL HISTORY: Hypertension, breast cancer, status post right lumpectomy, right mastectomy, status post chemo and radiation therapy with mets to bone and liver, gastroesophageal reflux disease, hyperlipidemia, hypertension, osteoarthritis. PAST SURGICAL HISTORY: Right mastectomy, cholecystectomy, bowel resection, back surgery, left knee arthroplasty, lysis of adhesions, colonoscopy, pleurocentesis, cataract surgery. SOCIAL HISTORY: Negative for smoking, drug abuse or alcohol abuse. MEDICATIONS: Medications at home prior to admission include Vasotec, iron, Lasix, Requip, vitamin D3, Zocor, multivitamins. ALLERGIES: None. PHYSICAL EXAMINATION: On examination, patient is comfortable. She is not in any acute distress. She is barely arousable. Blood pressure is 106/48, heart rate 82 per minute. Patient is afebrile. EXAMINATION OF THE HEART: S1, S2. EXAMINATION OF THE LUNGS: Bilateral breath sounds are heard. Abdomen is soft, nontender. Examination of lower extremities showed chronic skin changes. No significant erythema or edema is noted. The chest x-ray shows moderate left and small right pleural effusion. LABS: Labs show sodium of 127, potassium 5.0, chloride 91, BUN 54, serum creatinine 3.23, hemoglobin 13.4 g/dL. UA shows 1+ protein, large leukocyte esterase, WBCs more than 182. ASSESSMENT: 1. Acute kidney injury secondary to hypotension hypoperfusion, acute tubular necrosis, currently oliguric. The patient has an indwelling Garcia catheter. She is not on any nephrotoxic medications. I will continue with IV hydration. 2. Hyponatremia, appears to be hypovolemic, currently improved with saline, which we will continue. 3. History of breast cancer, status post right mastectomy and chemotherapy with recent diagnosis of metastasis to the liver and bone with bilateral pleural effusions. 4. Elevated lactic acid, most likely secondary to underlying urinary tract infection, possible sepsis. 5. Elevated liver enzymes. Etiology is either hypoperfusion hypotension versus secondary to underlying metastasis. PLAN: Will repeat another fluid bolus. The patient may need to be transferred to the ICU. Continue current antibiotics. There are no major nephrotoxic agents on board. We will check an ultrasound of the kidneys as well. I doubt the 20 mg of p.o. Lasix will have much effect; therefore, I will it for now and we can give her a dose of IV Lasix after the fluid bolus if she remains oliguric. Thank you for this consultation. We will continue to follow the patient with you during her hospitalization. Overall prognosis is guarded. MMODL / IJN: [id number] /
--- NOTE | 2017-08-18 11:48 | P.PN ---
Subjective Progress Note Date: 08/18/17 Principal diagnosis: Severe hyponatremia, liver metastasis, severe hypotension, breast cancer wi 82-year-old female one of Dr. Garcia's patient with past medical history of breast cancer was diagnosed back in 2013, underwent 2 through surgery and chemotherapy. Patient had liver metastases were diagnosed recently with Dr. Godfrey. She was in the office yesterday for follow-up and found to be in severe fatigue tiredness not doing well and had mild altered mental status. With the current complaint was sent to the emergency department at [facility] where was seen and evaluated, surprisingly found to have severe hyponatremia with sodium of 122, acute kidney injury with most likely ATN with creatinine 1.7 BUN 46. Also had severe coagulopathy with INR of 2.0, PT of 17.8. Also her liver function tests are extremely abnormal. Patient was hospitalized under oncology and transferred to our service this morning for her current medical management. Patient continued to have severe hypotension with a blood pressure running in the 70s to 80/50. Review her CAT scan with the metastasis to the liver patient most likely had more metastasis elsewhere including lymph node around the vena cava along with adrenal gland causing mild to moderate adrenal insufficiency along with more blockage of the vena cava causing worsening edema in the lower extremity. 08/18: Patient is much worse today, she is in semi-coma, continue to have furthermore decline in kidney function and continue to be in acute liver failure. I spoke with the family further decision to be made most likely patient will be DO NOT RESUSCITATE and family might move into more comfort care. With the severity and the rapid decline in patient's condition her mortalities very high in the next 3 days Objective - Vital Signs Vital signs: Vital Signs Temp 97.5 F L 08/17/17 21:11 Pulse 82 08/18/17 05:15 Resp 20 08/18/17 05:15 BP 106/48 08/18/17 05:15 Pulse Ox 97 08/17/17 21:11 Intake & Output 08/17/17 08/18/17 08/18/17 18:59 06:59 18:59 Intake Total 2000 950 Output Total 200 100 Balance 1800 850 Weight 74.843 kg Intake: IV 2000 950 Albumin Human 25% 50 ml 50 In Empty Bag 1 bag @ 100 mls/hr IVPB Q1H [facility] Rx#: [id number] Albumin Human 25% 50 ml 50 In Empty Bag 1 bag @ 100 mls/hr IVPB Q1H [facility] Rx#: [id number] Sodium Chloride 0.9% 1, 850 000 ml @ 75 mls/hr IV . [id number] [facility] Rx#:[id number] Sodium Chloride 0.9% 1, 2000 000 ml @ 999 mls/hr IV . Q1H1M [facility] Rx#:[id number] Oral 0 Output: Urine 200 100 Straight 100 Other: Voiding Method Indwelling Catheter Indwelling Catheter Indwelling Catheter - Exam Review of systems: CONSTITUTIONAL: She is in coma, does not look in any respiratory distress or any pain. EYES: Positive icterus sclerae, no conjunctivitis. EARS, NOSE, MOUTH, THROAT, and FACE: No sore throat, lymphadenopathy, carotid bruits or deformity. RESPIRATORY: No SOB cough or wheezes. CARDIOVASCULAR: No CP, Palpitation, PND, Orthopnea, or angina. GASTROINTESTINAL: No Abd pain, Nausea or vomiting, no Diarrhea or constipation, No GI Bleed, no distention or masses. Positive jaundice and slight Ascites. GENITOURINARY: Negative for Hematuria or UTI, no kidney stones. INTEGUMENT/BREAST: Negative for any muscular injury with mild osteoarthritis.. HEMATOLOGIC/LYMPHATIC: Negative for bleed or purpura. MUSCULOSKELTAL: Negative for Myalgia or arthralgia. NEURLOGICAL: Patient is in coma and responded only to deep stimuli today. BEHAVIORAL/PSYCH: Negative. ENDOCRINE: Negative. Physical examination: General Appearance: Patient is laying in bed, no respond, she is in coma with respond to pain stimuli only. Neck HEENT: Supple, no lymphadenopathy, no thyroid enlargement, no carotid bruits. Positive icterus sclera. Lungs: Clear to auscultation without crackles or wheezes no rhonchi, no deformity. Chest Wall: Chest wall normal expansion with deep inspiration no tenderness and no deformity was found on exam, no costochondral pain or discomfort. Heart: Regular rate and rhythm, S1, S2 normal, no murmur, rub or gallop. Back: Symmetric, no curvature, ROM normal, no CVA tenderness. Abdomen: Soft, positive ascites, positive hepatomegaly with splenomegaly Extremities: Extremities normal, atraumatic, no cyanosis or edema. Pulses: 2+ and symmetric. Skin: Skin color, texture, tugor normal, no rashes or lesions. Neurologic: She is not alert, and responded only to pain stimuli. - Labs CBC & Chem 7: 08/18/17 07:37 08/18/17 07:37 Labs: Abnormal Lab Results - Last 24 Hours (Table) 08/17/17 08/17/17 08/17/17 Range/Units 16:21 18:01 20:15 WBC (3.8-10.6) k/uL RBC (3.80-5.40) m/uL MCV (80.0-100.0) fL MCH (25.0-35.0) pg RDW (11.5-15.5) % Plt Count (150-450) k/uL Neutrophils # (1.3-7.7) k/uL Lymphocytes # (1.0-4.8) k/uL Sodium (137-145) mmol/L Chloride (98-107) mmol/L Carbon Dioxide (22-30) mmol/L BUN (7-17) mg/dL Creatinine (0.52-1.04) mg/dL Glucose (74-99) mg/dL POC Glucose (mg/dL) 104 H (75-99) mg/dL Plasma Lactic Acid Prakash 2.5 H* 2.2 H* (0.7-2.0) mmol/L Calcium (8.4-10.2) mg/dL Total Bilirubin (0.2-1.3) mg/dL AST (14-36) U/L ALT (9-52) U/L Alkaline Phosphatase (38-126) U/L Total Protein (6.3-8.2) g/dL Albumin (3.5-5.0) g/dL 08/18/17 08/18/17 Range/Units 07:37 07:37 WBC 11.4 H (3.8-10.6) k/uL RBC 3.74 L (3.80-5.40) m/uL MCV 108.6 H (80.0-100.0) fL MCH 35.8 H (25.0-35.0) pg RDW 17.2 H (11.5-15.5) % Plt Count 110 L (150-450) k/uL Neutrophils # 10.1 H (1.3-7.7) k/uL Lymphocytes # 0.8 L (1.0-4.8) k/uL Sodium 127 L (137-145) mmol/L Chloride 91 L (98-107) mmol/L Carbon Dioxide 16 L (22-30) mmol/L BUN 54 H (7-17) mg/dL Creatinine 3.23 H (0.52-1.04) mg/dL Glucose 63 L (74-99) mg/dL POC Glucose (mg/dL) (75-99) mg/dL Plasma Lactic Acid Prakash (0.7-2.0) mmol/L Calcium 7.2 L (8.4-10.2) mg/dL Total Bilirubin 8.5 H (0.2-1.3) mg/dL AST 457 H (14-36) U/L ALT 102 H (9-52) U/L Alkaline Phosphatase 165 H (38-126) U/L Total Protein 6.0 L (6.3-8.2) g/dL Albumin 3.2 L (3.5-5.0) g/dL Microbiology - Last 24 Hours (Table) 08/17/17 10:10 Urine Culture - Preliminary Urine,Catheterized Assessment and Plan Plan: 1 severe hyponatremia: Sodium is slightly bit better today, continue to see nephrology for now with the decline in her kidney function her status overall is much worse. 2 acute kidney failure: Secondary to ATN and prerenal, continue to see nephrology. No urine output the last 24 hours, patient is not a candidate for hemodialysis at this point and family will shy away from that decision as well. 3 liver metastasis: More advance causing jaundice and more sign and symptom of liver failure which will increase the mortalities significantly with the current problem. Continue to watch liver function tests and coagulation on daily basis further testing including ultrasound of the liver and biliary tree be done. 4 severe coagulopathy: Caused by the liver metastasis continue to watch BUN/ creatinine and if needed vitamin K can be beneficial. 5 adrenal insufficiency: With possibility of adrenal metastasis as well, with current problem hydrocortisone 100 every 6 hours we'll be giving for the next 8 hours as a trial if improvement in the blood pressure and general condition that would make the diagnosis. 6 advanced stage IV breast cancer with metastasis: Was on chemotherapy still seen oncology regularly. 7 iron deficiency anemia: Patient to continue iron supplement. 8 anasarca: Most likely secondary to liver metastasis along with ascites and possibly pressure around the vena cava causing the symptoms. We will start diuretics as soon as the blood pressure improved. 9 restless leg syndrome: Has been on Requip 2 mg daily at bedtime continue medication. 10 hyperlipidemia: Patient has been on simvastatin which will be held for now. 11 hypertension: Blood pressure is low hold Vasotec for now. Prognosis: Patient has extreme high mortality for the next 3 days, had multiple comorbidity with much worsening condition overall from her liver to kidney failure beside her stage IV metastasis the cancer which become much worse.
--- NOTE | 2017-08-18 11:55 | US ---
EXAMINATION TYPE: US kidneys/renal and bladder DATE OF EXAM: 08/18/2017 COMPARISON: NONE CLINICAL HISTORY: LUIZ. LUIZ, obese patient, exam done portable. EXAM MEASUREMENTS: Right Kidney: 10.3 x 4.2 x 4.9 cm Left Kidney: 8.3 x 4.5 x 4.2 cm Difficult and limited study due to patient body habitus and overlying bowel gas Right Kidney: no hydronephrosis or masses seen Left Kidney: smaller in size compared to right kidney, no hydronephrosis or masses seen Bladder: not distended, griffith catheter Bilateral pleural effusions seen Free fluid seen within pelvis and LUQ There is no evidence for hydronephrosis at this point in time. No masses are identified on images jesus ed. The urinary bladder is poorly distended and thus suboptimally evaluated due to Griffith catheter. IMPRESSION: Suboptimal study without hydronephrosis identified in either kidney.
[2017-08-18] MEDS ORDERED: LORazepam 2 MG/ML INJ IV PRN (14:17)
[2017-08-18] MEDS ORDERED: DRY MOUTH SPRAY 44.3 SPRAY/44.3 ML SPRAY MUCOUS MEM PRN (14:17)
[2017-08-18] MEDS ORDERED: ARTIFICIAL TEARS-HYPROMELLOSE DROPS 15 ML BTL BOTH EYES PRN (14:17)
[2017-08-18] MEDS ORDERED: SCOPOLAMINE 1.5MG/72HR PATCH TRANSDERM PRN (14:17)
[2017-08-18] MEDS ORDERED: ACETAMINOPHEN TAB 325 MG TAB PO PRN (14:17)
--- NOTE | 2017-08-18 14:18 | P.PN ---
<Amanda Garcias E - Last Filed: 08/18/17 14:16> Subjective Progress Note Date: 08/18/17 HPI: This is an 81-year-old female who presented emergency department with altered mental status and fatigue. The patient was also having diarrhea and vomiting yesterday. She has had decreased appetite. She was found to be hyponatremic. She does have a history of breast cancer with metastases. The patient has liver metastases. She states she has been feeling very tired and fatigued lately. She is also complaining of shortness of breath. She is currently on 2 L nasal cannula with an O2 saturation of 97%. She denies fevers but does have chills and is always cold. She has swollen legs as well. She has been hypotensive and did require 2 L of IV fluid bolus. Her most recent blood pressure was 99/56. She is currently receiving IV fluids at 75 mL per hour. She does state that she has had decreased urine output. The patient did have a chest x-ray which showed moderate left pleural effusion and small right pleural effusion. She does have diffuse anasarca. The patient was straight cathed and had 100 mL of urine output. Interval History: 08/18/17- patient is being seen examined and evaluated on rounds. Her blood pressure is better today 106/48. She continues on 2 L of supplemental oxygen via nasal cannula. She has been afebrile. Her labs today reveal a WBC of 11.4 , and a 127, CO2 of 16, her lactic acid from yesterday 7.5 and the repeat is 2.2 , AST 457, ALP 102, alkaline phosphatase 165, BUN 54 and creatinine is 3.23. Patient was not making appropriate urine overnight even after dose of Lasix, Nephrology has been consulted she will undergo an ultrasound of the kidneys. Antibiotics were initiated yesterday for UTI. Stool cultures have yet to be obtained. The patient did undergo an ultrasound of the chest yesterday which did reveal a right sided pleural effusion of 9 cm and a left-sided pleural effusion of 10.5. Upon examination the patients mentation has declined she is lethargic, she is more confused today, did not take her morning pills from the nurse. She does respond however inappropriately. Moving all 4 extremities. Code status and goals of care will be discussed with the family and collaborating teams. Objective - Vital Signs Vital signs: Vital Signs Temp 97.5 F L 08/17/17 21:11 Pulse 82 08/18/17 05:15 Resp 20 08/18/17 05:15 BP 106/48 08/18/17 05:15 Pulse Ox 97 08/17/17 21:11 Intake & Output 08/17/17 08/18/17 08/18/17 18:59 06:59 18:59 Intake Total 2000 950 Output Total 200 100 Balance 1800 850 Weight 74.843 kg Intake: IV 2000 950 Albumin Human 25% 50 ml 50 In Empty Bag 1 bag @ 100 mls/hr IVPB Q1H [facility] Rx#: [id number] Albumin Human 25% 50 ml 50 In Empty Bag 1 bag @ 100 mls/hr IVPB Q1H [facility] Rx#: [id number] Sodium Chloride 0.9% 1, 850 000 ml @ 75 mls/hr IV . [id number] [facility] Rx#:[id number] Sodium Chloride 0.9% 1, 2000 000 ml @ 999 mls/hr IV . Q1H1M [facility] Rx#:[id number] Oral 0 Output: Urine 200 100 Straight 100 Other: Voiding Method Indwelling Catheter Indwelling Catheter Indwelling Catheter - Exam Gen.: Patient is alert and oriented 3, no acute distress, obese Cardiovascular: Regular rate and rhythm, S1/S2 Lungs: Diminished breath sounds bilaterally at the bases Abdomen: Soft nontender nondistended positive bowel sounds Extremities: 3+ pitting edema - Labs CBC & Chem 7: 08/18/17 07:37 08/18/17 07:37 Labs: Abnormal Lab Results - Last 24 Hours (Table) 08/17/17 08/17/17 08/17/17 Range/Units 10:10 10:45 16:21 WBC (3.8-10.6) k/uL RBC (3.80-5.40) m/uL MCV (80.0-100.0) fL MCH (25.0-35.0) pg RDW (11.5-15.5) % Plt Count (150-450) k/uL Sodium (137-145) mmol/L Chloride (98-107) mmol/L Carbon Dioxide (22-30) mmol/L BUN (7-17) mg/dL Creatinine (0.52-1.04) mg/dL Glucose (74-99) mg/dL POC Glucose (mg/dL) (75-99) mg/dL Osmolality 265 L (280-301) mosm/kg Plasma Lactic Acid Prakash 2.5 H* (0.7-2.0) mmol/L Calcium (8.4-10.2) mg/dL Total Bilirubin (0.2-1.3) mg/dL AST (14-36) U/L ALT (9-52) U/L Alkaline Phosphatase (38-126) U/L Total Protein (6.3-8.2) g/dL Albumin (3.5-5.0) g/dL Urine Appearance Turbid H (Clear) Urine Protein 1+ H (Negative) Urine Blood Trace H (Negative) Urine Bilirubin 2+ H (Negative) Ur Leukocyte Esterase Large H (Negative) Urine WBC >182 H (0-5) /hpf Urine WBC Clumps Many H (None) /hpf Urine Bacteria Moderate H (None) /hpf Hyaline Casts 100 H (0-2) /lpf Urine Mucus Occasional H (None) /hpf 08/17/17 08/17/17 08/18/17 Range/Units 18:01 20:15 07:37 WBC 11.4 H (3.8-10.6) k/uL RBC 3.74 L (3.80-5.40) m/uL MCV 108.6 H (80.0-100.0) fL MCH 35.8 H (25.0-35.0) pg RDW 17.2 H (11.5-15.5) % Plt Count 110 L (150-450) k/uL Sodium (137-145) mmol/L Chloride (98-107) mmol/L Carbon Dioxide (22-30) mmol/L BUN (7-17) mg/dL Creatinine (0.52-1.04) mg/dL Glucose (74-99) mg/dL POC Glucose (mg/dL) 104 H (75-99) mg/dL Osmolality (280-301) mosm/kg Plasma Lactic Acid Prakash 2.2 H* (0.7-2.0) mmol/L Calcium (8.4-10.2) mg/dL Total Bilirubin (0.2-1.3) mg/dL AST (14-36) U/L ALT (9-52) U/L Alkaline Phosphatase (38-126) U/L Total Protein (6.3-8.2) g/dL Albumin (3.5-5.0) g/dL Urine Appearance (Clear) Urine Protein (Negative) Urine Blood (Negative) Urine Bilirubin (Negative) Ur Leukocyte Esterase (Negative) Urine WBC (0-5) /hpf Urine WBC Clumps (None) /hpf Urine Bacteria (None) /hpf Hyaline Casts (0-2) /lpf Urine Mucus (None) /hpf 08/18/17 Range/Units 07:37 WBC (3.8-10.6) k/uL RBC (3.80-5.40) m/uL MCV (80.0-100.0) fL MCH (25.0-35.0) pg RDW (11.5-15.5) % Plt Count (150-450) k/uL Sodium 127 L (137-145) mmol/L Chloride 91 L (98-107) mmol/L Carbon Dioxide 16 L (22-30) mmol/L BUN 54 H (7-17) mg/dL Creatinine 3.23 H (0.52-1.04) mg/dL Glucose 63 L (74-99) mg/dL POC Glucose (mg/dL) (75-99) mg/dL Osmolality (280-301) mosm/kg Plasma Lactic Acid Prakash (0.7-2.0) mmol/L Calcium 7.2 L (8.4-10.2) mg/dL Total Bilirubin 8.5 H (0.2-1.3) mg/dL AST 457 H (14-36) U/L ALT 102 H (9-52) U/L Alkaline Phosphatase 165 H (38-126) U/L Total Protein 6.0 L (6.3-8.2) g/dL Albumin 3.2 L (3.5-5.0) g/dL Urine Appearance (Clear) Urine Protein (Negative) Urine Blood (Negative) Urine Bilirubin (Negative) Ur Leukocyte Esterase (Negative) Urine WBC (0-5) /hpf Urine WBC Clumps (None) /hpf Urine Bacteria (None) /hpf Hyaline Casts (0-2) /lpf Urine Mucus (None) /hpf Microbiology - Last 24 Hours (Table) 08/17/17 10:10 Urine Culture - Preliminary Urine,Catheterized Assessment and Plan Assessment: Assessment Sepsis Acute hypoxic respiratory failure Hypotension, likely multifactorial Relative adrenal insufficiency Intravascular volume depletion UTI present on admission Moderate protein calorie malnutrition Moderate left and small right pleural effusions Anasarca Stage IV breast cancer with liver metastases Encephalopathy now resolved Hyponatremia Acute kidney injury, ATN secondary to hypotension Iron deficiency anemia Acute kidney injury Generalized fatigue and failure to thrive Coagulopathy secondary to liver metastases Plan Code status and goals of care will be collaborative discussed with the family, primianry care and other consults teams O2 to maintain saturation greater than or equal to 88% Will check ultrasound of the chest to [facility] for thoracentesis Albumin x 2 doses Continue IV fluids at 75 mL per hour Avoid antihypertensives and nephrotoxins Antibiotics: Rocephin Await final urine culture Recheck labs now Check lactic acid GI and DVT prophylaxis Oncology recommendations Place Garcia catheter and monitor urine output Incentive spirometry and pulmonary hygiene Thank you for this consultation we'll continue to follow along I performed an examination of the patient and discussed their management with the nurse practitioner. I have reviewed the nurse practitioner's note and agree with the documented findings and plan of care. <Jesusita Weaver A - Last Filed: 08/18/17 14:27> Objective - Vital Signs Vital signs: Vital Signs Temp 97.5 F L 08/17/17 21:11 Pulse 82 08/18/17 05:15 Resp 20 08/18/17 05:15 BP 106/48 08/18/17 05:15 Pulse Ox 97 08/17/17 21:11 Intake & Output 08/17/17 08/18/17 08/18/17 18:59 06:59 18:59 Intake Total 1999 950 900 Output Total 200 100 50 Balance 1800 850 850 Weight 74.843 kg Intake: IV 1999 950 Albumin Human 25% 50 ml 50 In Empty Bag 1 bag @ 100 mls/hr IVPB Q1H [facility] Rx#: [id number] Albumin Human 25% 50 ml 50 In Empty Bag 1 bag @ 100 mls/hr IVPB Q1H [facility] Rx#: [id number] Sodium Chloride 0.9% 1, 850 000 ml @ 75 mls/hr IV . [id number] [facility] Rx#:[id number] Sodium Chloride 0.9% 1, 2000 000 ml @ 999 mls/hr IV . Q1H1M [facility] Rx#:[id number] Intake, IV Titration 900 Amount Sodium Chloride 0.9% 1, 900 000 ml @ 75 mls/hr IV . [id number] [facility] Rx#:[id number] Oral 0 0 Output: Urine 200 100 50 Straight 100 Other: Voiding Method Indwelling Catheter Indwelling Catheter Indwelling Catheter # Voids 1 - Labs CBC & Chem 7: 08/18/17 07:37 08/18/17 07:37 Labs: Abnormal Lab Results - Last 24 Hours (Table) 08/17/17 08/17/17 08/17/17 Range/Units 16:21 18:01 20:15 WBC (3.8-10.6) k/uL RBC (3.80-5.40) m/uL MCV (80.0-100.0) fL MCH (25.0-35.0) pg RDW (11.5-15.5) % Plt Count (150-450) k/uL Neutrophils # (1.3-7.7) k/uL Lymphocytes # (1.0-4.8) k/uL Sodium (137-145) mmol/L Chloride (98-107) mmol/L Carbon Dioxide (22-30) mmol/L BUN (7-17) mg/dL Creatinine (0.52-1.04) mg/dL Glucose (74-99) mg/dL POC Glucose (mg/dL) 104 H (75-99) mg/dL Plasma Lactic Acid Prakash 2.5 H* 2.2 H* (0.7-2.0) mmol/L Calcium (8.4-10.2) mg/dL Total Bilirubin (0.2-1.3) mg/dL AST (14-36) U/L ALT (9-52) U/L Alkaline Phosphatase (38-126) U/L Total Protein (6.3-8.2) g/dL Albumin (3.5-5.0) g/dL 08/18/17 08/18/17 Range/Units 07:37 07:37 WBC 11.4 H (3.8-10.6) k/uL RBC 3.74 L (3.80-5.40) m/uL MCV 108.6 H (80.0-100.0) fL MCH 35.8 H (25.0-35.0) pg RDW 17.2 H (11.5-15.5) % Plt Count 110 L (150-450) k/uL Neutrophils # 10.1 H (1.3-7.7) k/uL Lymphocytes # 0.8 L (1.0-4.8) k/uL Sodium 127 L (137-145) mmol/L Chloride 91 L (98-107) mmol/L Carbon Dioxide 16 L (22-30) mmol/L BUN 54 H (7-17) mg/dL Creatinine 3.23 H (0.52-1.04) mg/dL Glucose 63 L (74-99) mg/dL POC Glucose (mg/dL) (75-99) mg/dL Plasma Lactic Acid Prakash (0.7-2.0) mmol/L Calcium 7.2 L (8.4-10.2) mg/dL Total Bilirubin 8.5 H (0.2-1.3) mg/dL AST 457 H (14-36) U/L ALT 102 H (9-52) U/L Alkaline Phosphatase 165 H (38-126) U/L Total Protein 6.0 L (6.3-8.2) g/dL Albumin 3.2 L (3.5-5.0) g/dL Microbiology - Last 24 Hours (Table) 08/17/17 10:45 Blood Culture - Preliminary Blood No Growth after 24 hours 08/17/17 10:10 Urine Culture - Preliminary Urine,Catheterized Gram Neg Bacilli Assessment and Plan Assessment: Patient seen and examined. Patient nods no when asked if in pain or discomfort. The patient's daughters are at bedside. Extensive discussion had regarding patient's prognosis, condition, multiple medical comorbidities. They are agreeable to proceed with comfort care at this time. They do not want hospice consulted at this time, they state they had a bad experience at another hospital. They are encouraged to think about it and let the nurse know if they changed their mind about hospice. Nursing updated to plan of care. All questions answered. The family does not want the patient on IV drips of medications at this time, but they are agreeable to IVP PRN medications. All concerns are answered. They are agreeable to proceed. Comfort measures orders in place. ~Jesusita Weaver,
[2017-08-18] MEDS: MORPHINE SULFATE 2 MG/ML SYRINGE IVP PRN ×2 (17:21→22:32)
[2017-08-19] MEDS ORDERED: FUROSEMIDE 20 MG TAB PO SCH (09:00)
--- NOTE | 2017-08-19 11:47 | PN ---
PROGRESS NOTE DATE OF SERVICE: 08/19/2017 She is unresponsive and has agonal breathing. PHYSICAL EXAMINATION: Respiratory rate is 20, pulse rate 82. She is afebrile. Oxygen saturation on 2 L by nasal cannula is 97%. HEENT: Unremarkable. Chest reveals scattered rhonchi. Cardiovascular system reveals an S1, S2. ABDOMEN: Soft. There is no pedal edema. Chart, labs and medications were reviewed. IMPRESSION AT THIS TIME: 1. Acute renal failure. 2. Metastatic cancer. 3. Anasarca. 4. Medical debility. At this point in time, I agree with comfort-oriented care. Will see her on an as-needed basis. I would like to thank you for allowing us to participate in her care. MMODL / IJN: [id number] /
--- NOTE | 2017-08-19 12:46 | P.PN ---
Subjective 82-year-old female one of Dr. Garcia's patient with past medical history of breast cancer was diagnosed back in 2013, underwent 2 through surgery and chemotherapy. Patient had liver metastases were diagnosed recently with Dr. Godfrey. She was in the office yesterday for follow-up and found to be in severe fatigue tiredness not doing well and had mild altered mental status. With the current complaint was sent to the emergency department at [facility] where was seen and evaluated, surprisingly found to have severe hyponatremia with sodium of 122, acute kidney injury with most likely ATN with creatinine 1.7 BUN 46. Also had severe coagulopathy with INR of 2.0, PT of 17.8. Also her liver function tests are extremely abnormal. Patient was hospitalized under oncology and transferred to our service this morning for her current medical management. Patient continued to have severe hypotension with a blood pressure running in the 70s to 80/50. Review her CAT scan with the metastasis to the liver patient most likely had more metastasis elsewhere including lymph node around the vena cava along with adrenal gland causing mild to moderate adrenal insufficiency along with more blockage of the vena cava causing worsening edema in the lower extremity. 08/18: Patient is much worse today, she is in semi-coma, continue to have furthermore decline in kidney function and continue to be in acute liver failure. I spoke with the family further decision to be made most likely patient will be DO NOT RESUSCITATE and family might move into more comfort care. With the severity and the rapid decline in patient's condition her mortalities very high in the next 3 days 08/19: Patient was evaluated today, lying in bed comfortably with family at the bedside. Patient's condition continues to decline, patient is currently comfort care with DO NOT RESUSCITATE orders. Will continue to make patient comfortable. Objective - Vital Signs Vital signs: Vital Signs Temp 97.5 F L 08/17/17 21:11 Pulse 82 08/18/17 15:57 Resp 20 08/18/17 15:57 BP 106/48 08/18/17 05:15 Pulse Ox 97 08/18/17 15:34 Intake & Output 08/18/17 08/19/17 08/19/17 18:59 06:59 18:59 Intake Total 900 Output Total 100 0 Balance 800 0 Weight 74.843 kg Intake: Intake, IV Titration 900 Amount Sodium Chloride 0.9% 1, 900 000 ml @ 20 mls/hr IV . Q24H [facility] Rx#:[id number] Oral 0 Output: Urine 100 0 Other: Voiding Method Indwelling Catheter Indwelling Catheter # Voids 1 0 - Exam General Appearance: Patient is laying in bed, no respond, she is in coma with respond to pain stimuli only. Neck HEENT: Supple, no lymphadenopathy, no thyroid enlargement, no carotid bruits. Positive icterus sclera. Lungs: Clear to auscultation without crackles or wheezes no rhonchi, no deformity. Chest Wall: Chest wall normal expansion with deep inspiration no tenderness and no deformity was found on exam, no costochondral pain or discomfort. Heart: Regular rate and rhythm, S1, S2 normal, no murmur, rub or gallop. Back: Symmetric, no curvature, ROM normal, no CVA tenderness. Abdomen: Soft, positive ascites, positive hepatomegaly with splenomegaly Extremities: Extremities normal, atraumatic, no cyanosis or edema. Pulses: 2+ and symmetric. Skin: Skin color, texture, tugor normal, no rashes or lesions. Neurologic: She is not alert, and responded only to pain stimuli. - Labs CBC & Chem 7: 08/18/17 07:37 08/18/17 07:37 Labs: Abnormal Lab Results - Last 24 Hours (Table) 08/18/17 Range/Units 07:37 WBC 11.4 H (3.8-10.6) k/uL RBC 3.74 L (3.80-5.40) m/uL MCV 108.6 H (80.0-100.0) fL MCH 35.8 H (25.0-35.0) pg RDW 17.2 H (11.5-15.5) % Plt Count 110 L (150-450) k/uL Neutrophils # 10.1 H (1.3-7.7) k/uL Lymphocytes # 0.8 L (1.0-4.8) k/uL Microbiology - Last 24 Hours (Table) 08/17/17 10:45 Blood Culture - Preliminary Blood No Growth after 24 hours 08/17/17 10:10 Urine Culture - Preliminary Urine,Catheterized Gram Neg Bacilli Assessment and Plan Plan: 1 severe hyponatremia: Sodium is slightly bit better, continue to see nephrology for now with the decline in her kidney function her status overall is much worse. 2 acute kidney failure: Secondary to ATN and prerenal, continue to see nephrology. No urine output the last 24 hours, patient is not a candidate for hemodialysis at this point and family will shy away from that decision as well. 3 liver metastasis: More advance causing jaundice and more sign and symptom of liver failure which will increase the mortalities significantly with the current problem. 4 severe coagulopathy: Caused by the liver metastasis continue to watch BUN/ creatinine and if needed vitamin K can be beneficial. 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 7 iron deficiency anemia: Patient to continue iron supplement. 8 anasarca: Most likely secondary to liver metastasis along with ascites and possibly pressure around the vena cava causing the symptoms. 9 restless leg syndrome: Has been on Requip 2 mg daily at bedtime continue medication. 10 hyperlipidemia: Patient has been on simvastatin which will be held for now. 11 hypertension: Blood pressure is low hold Vasotec for now. Prognosis: Patient has extreme high mortality for the next 3 days, had multiple comorbidity with much worsening condition overall from her liver to kidney failure beside her stage IV metastasis the cancer which become much worse. The above impression and plan of care have been discussed and directed by signing physician. Charlene Bernal nurse practitioner acting as scribe for signing physician.
--- NOTE | 2017-08-19 16:15 | PN ---
PROGRESS NOTE Linn is seen today as a followup. She is extremely lethargic, unresponsive and multiple family members are at bedside. Her temperature is 97.5, pulse is 75, respiration is . PHYSICAL EXAMINATION: She is unresponsive, appears to be comfortable, however, not in pain. Heart is tachy. Lungs revealed decreased breath sounds both sides. Abdomen is somewhat distended. Extremities reveal 1+ edema. IMPRESSION: End-stage breast carcinoma. She has a diffuse liver involvement and along with hepatic failure and renal failure. The overall prognosis is very poor. The patient is currently on comfort care, which I highly recommend to continue with that, and the patient and the family are all aware of overall poor prognosis and they are all comfortable with comfort measures. MMODL / IJN: [id number] /
[2017-08-19] MEDS: SODIUM CHLORIDE 0.9% 1,000 ML IV SCH (16:17)
[2017-08-20] MEDS: MORPHINE SULFATE 2 MG/ML SYRINGE IVP PRN ×2 (00:13→05:19)
[2017-08-20] MEDS: SODIUM CHLORIDE 0.9% 1,000 ML IV SCH (02:19)
[2017-08-20] MEDS ORDERED: ATROPINE OPHTH SOLN 1% 5ML BTL SUBLINGUAL PRN (02:54)
--- NOTE | 2017-08-20 12:54 | P.DS ---
Providers Date of admission: 08/16/17 12:52 Attending physician: James Agustin Consults: 08/17/17 09:26 Consult Physician Routine Consulting Provider: Johan Segovia Consult Reason/Comments: dehydration Do you want consulting provider notified?: Already Contacted 08/17/17 09:35 Consult Physician Routine Consulting Provider: Jesusita Weaver Consult Reason/Comments: hypotension, evaluate for pressors/ICU Do you want consulting provider notified?: Yes 08/17/17 18:57 Consult Physician Routine Consulting Provider: Clint Vann Consult Reason/Comments: acute renal failure, anuria Do you want consulting provider notified?: Yes Primary care physician: [facility] Course: 82-year-old female one of Dr. Garcia's patient with past medical history of breast cancer was diagnosed back in 2013, underwent 2 through surgery and chemotherapy. Patient had liver metastases were diagnosed recently with Dr. Godfrey. She was in the office yesterday for follow-up and found to be in severe fatigue tiredness not doing well and had mild altered mental status. With the current complaint was sent to the emergency department at [facility] where was seen and evaluated, surprisingly found to have severe hyponatremia with sodium of 122, acute kidney injury with most likely ATN with creatinine 1.7 BUN 46. Also had severe coagulopathy with INR of 2.0, PT of 17.8. Also her liver function tests are extremely abnormal. Patient was hospitalized under oncology and transferred to our service this morning for her current medical management. Patient continued to have severe hypotension with a blood pressure running in the 70s to 80/50. Review her CAT scan with the metastasis to the liver patient most likely had more metastasis elsewhere including lymph node around the vena cava along with adrenal gland causing mild to moderate adrenal insufficiency along with more blockage of the vena cava causing worsening edema in the lower extremity. 08/18: Patient is much worse today, she is in semi-coma, continue to have furthermore decline in kidney function and continue to be in acute liver failure. I spoke with the family further decision to be made most likely patient will be DO NOT RESUSCITATE and family might move into more comfort care. With the severity and the rapid decline in patient's condition her mortalities very high in the next 3 days 08/19: Patient was evaluated today, lying in bed comfortably with family at the bedside. Patient's condition continues to decline, patient is currently comfort care with DO NOT RESUSCITATE orders. Will continue to make patient comfortable. 08/20: Patient passed this morning from complications from her advanced stage breast cancer with liver metastasis Discharge diagnoses 1 severe hyponatremia 2 acute kidney failure 3 liver metastasis 4 severe coagulopathy 5 adrenal insufficiency 6 advanced stage IV breast cancer with metastasis 7 iron deficiency anemia 8 anasarca 9 restless leg syndrome 10 hyperlipidemia 11 hypertension The above impression and plan of care have been discussed and directed by signing physician. Charlene Bernal nurse practitioner acting as scribe for signing physician. Plan - Discharge Summary Discharge Rx Participant: Yes New Discharge Prescriptions: No Action Simvastatin [Zocor] 20 mg PO DAILY Multivitamins, Thera [Multivitamin (formulary)] 1 tab PO DAILY Furosemide [Lasix] 20 mg PO DAILY Enalapril Maleate [Vasotec] 5 mg PO DAILY Cholecalciferol (Vitamin D3) [Vitamin D3] 2,000 unit PO DAILY Ferrous Sulfate [Iron] 325 mg PO DAILY rOPINIRole HCL [Requip] 2 mg PO BID Discharge Medication List Multivitamins, Thera [Multivitamin (formulary)] 1 tab PO DAILY 07/29/14 [History ] Simvastatin [Zocor] 20 mg PO DAILY 07/29/14 [History] Cholecalciferol (Vitamin D3) [Vitamin D3] 2,000 unit PO DAILY 08/08/17 [History] Enalapril Maleate [Vasotec] 5 mg PO DAILY 08/08/17 [History] Ferrous Sulfate [Iron] 325 mg PO DAILY 08/08/17 [History] Furosemide [Lasix] 20 mg PO DAILY 08/08/17 [History] rOPINIRole HCL [Requip] 2 mg PO BID 08/16/17 [History] Follow up Appointment(s)/Referral(s): Jesusita Weaver DO [Doctor of Osteopathic Medicine] - 1-2 Days Rachael Garcia DO [REFERRING] - 1-2 days Sharlene Godfrey MD [STAFF PHYSICIAN] - 09/05/17 4:45 pm Discharge Disposition: - Preliminary Cause of Preliminary Cause of : complications from breast cancer with metastasis
== END 2017-08-20 08:50 | disposition expired | DRG 435 ==
LOC: EC 09:40 → 5ONC 12:52
PROVIDERS: ADMIT Internal Medicine Geriatric Medicine; ATTEND Internal Medicine Geriatric Medicine
DX: C78.7 Secondary malignant neoplasm of liver and intrahepatic bile duct (principal); K72.00 Acute and subacute hepatic failure without coma; N17.0 Acute kidney failure with tubular necrosis; J96.01 Acute respiratory failure with hypoxia; E87.1 Hypo-osmolality and hyponatremia; E27.40 Unspecified adrenocortical insufficiency; C79.51 Secondary malignant neoplasm of bone; E44.0 Moderate protein-calorie malnutrition; D68.9 Coagulation defect, unspecified; N39.0 Urinary tract infection, site not specified; J90 Pleural effusion, not elsewhere classified; R18.8 Other ascites; I95.9 Hypotension, unspecified; E86.0 Dehydration; I10 Essential (primary) hypertension; G25.81 Restless legs syndrome; E78.5 Hyperlipidemia, unspecified; K21.9 Gastro-esophageal reflux disease without esophagitis; R62.7 Adult failure to thrive; Z66 Do not resuscitate; Z96.652 Presence of left artificial knee joint; D50.9 Iron deficiency anemia, unspecified; J45.909 Unspecified asthma, uncomplicated; M19.90 Unspecified osteoarthritis, unspecified site; Z79.899 Other long term (current) drug therapy; Z85.3 Personal history of malignant neoplasm of breast; Z90.11 Acquired absence of right breast and nipple; Z82.5 Family history of asthma and other chronic lower respiratory diseases; Z92.3 Personal history of irradiation; Z98.1 Arthrodesis status; Z90.49 Acquired absence of other specified parts of digestive tract
CPT/HCPCS: 36415; 71046; 76604; 76770; 80053; 81001; 83605; 83735; 83930; 83935; 85025; 85610; 85730; 87040; 87077; 87086; 87186; 93005; 94760; 96374; 96375; 99285